=== PATIENT | male | born 2000 | race Caucasian/White ===

== ENCOUNTER 2019-01-22 06:30 | Day surgery (SDC) | payer OTHER ==
[2019-01-22] MEDS ORDERED: Bupivacaine 0.5%/EPINEPHrine 1:200,000 50 ML MDV ONE (06:54)
[2019-01-22] MEDS ORDERED: Lidocaine 1% 50 ML MDV ONE (06:58)
[2019-01-22] MEDS ORDERED: Dextrose 5%-Lactated Ringers 1,000 ML IV SCH (07:00)
[2019-01-22] MEDS ORDERED: ceFAZolin 2 GM in Premix Bag 1 BAG IV ONE (07:00)
[2019-01-22] MEDS ORDERED: fentaNYL 100 MCG/2 ML SDV ONE (07:15)
[2019-01-22] MEDS ORDERED: Propofol 200 MG/20 ML SDV ONE ×2 (07:15→08:06)
[2019-01-22] MEDS ORDERED: Midazolam 1 MG/ML 2 ML SDV ONE (07:15)
[2019-01-22] MEDS ORDERED: Lidocaine 1% 50 ML MDV INJECT ONE (08:09)
[2019-01-22] MEDS ORDERED: Acetaminophen/HYDROcodone 325-5 MG Tab PO ONE (09:30)
[2019-01-22 09:57] VITALS: BP 115/61
--- NOTE | 2019-01-23 10:40 | OR ---
DATE OF PROCEDURE: 01/22/2019 PREOPERATIVE DIAGNOSIS: Pilonidal disease with abscess. POSTOPERATIVE DIAGNOSIS: Pilonidal disease with abscess. PROCEDURE: Lateral drainage of pilonidal abscess. SURGEON: Franklin Ayala MD ANESTHESIA: IV anesthesia with monitored anesthesia care. INDICATIONS: This 18-year-old white male has fairly extensive pilonidal disease. He was referred for pilonidal abscess drainage 2 days ago, but he refused at that time. He is taken to the operating room today for lateral drainage of his pilonidal disease. He has been on Keflex. I counseled for lateral drainage of his pilonidal abscess with plan for, in a few days, definitive excision of the central disease with maintenance of the lateral drainage, after the inflammation has reduced. He gave his informed consent to proceed. DESCRIPTION OF PROCEDURE: The patient was placed in the deyvi-knife position. IV anesthesia was administered by the Anesthesia Service. His low back and buttock areas were prepped and draped in usual sterile fashion. Time-out was held. Lidocaine 1% with epinephrine in a 50:50 mix with 0.5% Marcaine was infiltrated about the pilonidal abscess. It was spontaneously draining through one of the pilonidal pits in the midline. Superior and to the right of his cleft, we made an elliptical incision, which released more purulent material. This communicated with the central pit. We irrigated and cleaned it all out, and then packed the abscess cavity with a quarter-inch iodoform gauze. A sterile dressing was applied. He tolerated the procedure well and is going to return to the clinic tomorrow to have the packing removed. His mother is a nurse. She will be instructed on local wound care. Plan for definitive central disease excision on Sunday. Franklin Ayala MD /[id number]
== END 2019-01-22 10:00 | disposition home or self-care (01) ==
LOC: JP.SDS 06:30
PROVIDERS: ATTEND Surgery
DX: L05.01 Pilonidal cyst with abscess (principal); B95.5 Unspecified streptococcus as the cause of diseases classified elsewhere; Z79.2 Long term (current) use of antibiotics
CPT/HCPCS: 87070; 87075; 87077; 87205; A9270-GY; J0690; J2250; J2704; J3010; J3490; J7042

== ENCOUNTER 2019-01-27 08:29 | Day surgery (SDC) | payer OTHER ==
[~2019-01-27 08:29] MED LIST: Bupivacaine 0.5%/EPINEPHrine 1:200,000 50 ML MDV ONE
[2019-01-27] MEDS ORDERED: Dextrose 5%-Lactated Ringers 1,000 ML IV SCH (09:00)
[2019-01-27] MEDS ORDERED: ceFAZolin 2 GM in Premix Bag 1 BAG IV ONE (10:00)
[2019-01-27] MEDS ORDERED: Propofol 200 MG/20 ML SDV ONE ×2 (10:34→11:02)
[2019-01-27] MEDS ORDERED: Midazolam 1 MG/ML 2 ML SDV ONE (10:34)
[2019-01-27] MEDS ORDERED: fentaNYL 100 MCG/2 ML SDV ONE (10:34)
--- NOTE | 2019-01-27 12:11 | OR ---
DATE OF PROCEDURE: 01/27/2019 PREOPERATIVE DIAGNOSIS: Pilonidal disease. POSTOPERATIVE DIAGNOSIS: Pilonidal disease. PROCEDURE PERFORMED: Excision of central pilonidal disease with maintenance of lateral drainage. ANESTHESIA: IV anesthesia with monitored anesthesia care. INDICATION: This 18-year-old white male presented last week to the clinic with a pilonidal abscess. This was drained laterally. He now presents, with the inflammation having resolved, for excision of his central pilonidal disease with maintenance of lateral drainage. I counseled him for the procedure, including risks and alternatives, and he gave his informed consent to proceed. DESCRIPTION OF PROCEDURE: The patient was placed in the prone position with a small amount of deyvi-knife. His low back and buttock areas, proximal legs were prepped and draped in the usual sterile fashion. Time-out was held. Marcaine 0.5% with epinephrine was infiltrated about his central pilonidal pits. An 11 blade was used to excise the central pilonidal disease. We did encounter a small amount of hair. We used the Ray-Danyelle sponge to scour between the lateral drainage site and this central defect. The incision was then irrigated and suctioned dried. All looked well. Horizontal mattress stitches of #1 Prolene were then used to close the incision. We then packed the lateral drainage site up underneath the sutures with iodoform gauze. A sterile dressing was applied. He tolerated the procedure well and was brought from the operating room in a good condition. Franklin Ayala MD /[id number]
== END 2019-01-27 12:35 | disposition home or self-care (01) ==
LOC: JP.SDS 08:29
PROVIDERS: ATTEND Surgery
DX: L05.91 Pilonidal cyst without abscess (principal)
CPT/HCPCS: 11770; J0690; J2250; J2704; J3010; J3490; J7042